=== PATIENT | female | born 1995 | race Caucasian/White ===

== ENCOUNTER 2017-06-05 09:12 | Emergency (ER) | payer OTHER ==
[2017-06-05] MEDS ORDERED: Morphine 4 MG/ML VIAL ONE (11:17)
[2017-06-05] MEDS ORDERED: Ondansetron HCl/PF 4 MG/2 ML Vial ONE (11:17)
[2017-06-05] MEDS ORDERED: ISOVUE-370 76%-LOCM 1 ML ONE (11:34)
[2017-06-05 11:40] LABS: #Lymphocytes 1.5 thou/uL (1.20-3.40); #Monocytes 0.7 thou/uL (0.11-0.59); #Neutrophils 10.4 thou/uL (1.40-6.50); %Basophils 0.3 % (0.0-1.0); %Eosinophils 0.4 % (0.0-10.0); %Lymphocytes 11.9 % (28.0-48.0); %Monocytes 5.3 % (0.0-4.0); Hematocrit 38.9 % (36.0-47.0); Mean Platelet Volume 9.5 fL (7.4-10.4); Red Blood Cell (RBC) Count 4.82 mill/uL (4.00-5.20); White Blood Cell (WBC) Count 12.7 thou/uL (4.8-10.8)
--- NOTE | 2017-06-05 12:07 | CT ---
ABDOMEN AND PELVIS CT WITH CONTRAST: Date: 06/05/17 INDICATION: Low back pain and abdominal pain. No prior comparison. FINDINGS: There is mild bilateral pleural fluid with adjacent ground-glass alveolar opacification, incompletely assessed. Moderate distention of the gallbladder. No acute focal pathology of the liver, spleen, ochoa creas, kidneys, or adrenal glands. Abdominal aorta is normal in caliber. No free air. Bowel is incomp letely evaluated without the presence of enteric contrast. There is mild urothelial thickening of the right urinary collection system which may be on the basis of an ascending urinary tract infection, a lthough this is not specific. Correlate with urinary laboratory values. There is prominent volume and heterogeneity of the uterus. Mild fat stranding of the pelvis notably at the anterior right aspect i s present. The appendix is not reliably assessed without the presence of enteric contrast. There is s uggestion of a small normal caliber partially air-filled appendix although this is difficult to discr etely delineate. There is no acute osseous pathology evident. IMPRESSION: 1. Urothelial thickening and mild prominence of the right ureter. This could be on the basis of an a scending urinary tract infection/reflux. Correlate with urinary laboratory values. IVP may prove usef ul to further assess. 2. Heterogeneity and prominence of the uterus with mild degree of adjacent fat stranding within the anterior right pelvis. Correlate clinically. 3. Incomplete assessment of the bowel without enteric contrast administration. 4. Incidental note of bilateral pleural fluid and ground-glass opacity at the lung bases, incomplete ly visualized on the basis of this exam. POS: [facility]
[2017-06-05 12:16] LABS: ALT (SGPT) 42 U/L (8-55); AST (SGOT) 29 U/L (5-34); Alkaline Phosphatase 89 U/L (40-150); Anion Gap 13 mmol/L (10-20); BUN (Urea Nitrogen) 12 mg/dL (7.0-18.7); Bilirubin, Total 0.7 mg/dL (0.2-1.2); Calc. Creatinine Clearance 0 mL/min (70-130); Calcium 9.8 mg/dL (7.8-10.44); Carbon Dioxide 24 mmol/L (22-29); Chloride 104 mmol/L (98-107); Estimated GFR-MDRD 86; Globulin 3.6 g/dL (2.4-3.5); Lipase 9 U/L (8-78); Protein, Total 7.9 g/dL (6.0-8.3)
[2017-06-05 12:50] LABS: Bilirubin Negative (Negative); Blood, Urine Large (Negative); Glucose, Urine (Dipstick) Negative (Negative); Ketone, Urine Negative (Negative); Nitrite Negative (Negative); Protein, Urine (Dipstick) 100 mg/dL (Neg-Trace); Urobilinogen 0.2 mg/dL (0.2-1.0)
[2017-06-05 12:51] LABS: Hyaline Casts/LPF 7-10 HYALINE CAST LPF (0-3 Hyaline)
[2017-06-05 13:03] LABS: Bacteria/HPF 4+ HPF (None Seen); Yeast-All Forms None Seen HPF (None Seen)
[2017-06-05] MEDS ORDERED: Ketorolac Tromethamine 30 MG/ML VIAL ONE (13:20)
[2017-06-05] MEDS ORDERED: cefTRIAXone\\ROCEPHIN 1 GM, Syringe 0.4 ML in Sterile Water 9.6 ML SLOW IVP SCH (13:30)
[2017-06-05] MEDS ORDERED: cefTRIAXone\\ROCEPHIN 2 GM in Sodium Chloride 0.9% 100 ML IVPB SCH (14:00)
== END 2017-06-05 14:50 | disposition home or self-care (01) ==
LOC: ERS 09:12
DX: N39.0 Urinary tract infection, site not specified (principal)
CPT/HCPCS: 36415; 74177; 80053; 81003; 81015; 83690; 85025; 87077; 87086; 87186; 96361; 96365; 96375; A4216; J0696; J1885; J2270; J2405; J7050

== ENCOUNTER 2018-06-17 09:27 | Outpatient (CLI) | payer OTHER ==
--- NOTE | 2018-06-17 12:21 | ULT ---
PELVIC ULTRASOUND WITH DOPPLER: (Transabdominal, transvaginal, Cooper scale, color flow, and spectral Doppler) Date: 06/17/18 HISTORY: Pelvic pain. FINDINGS: The uterus measures 9.2 x 5.4 x 5.0 cm, without mass. The endometrium measures 6.0 mm in thickness. T here is trace fluid in the endometrial cavity and cervix. The right ovary measures 5.6 x 3.5 x 3.5 cm. The left ovary measures 2.3 x 1.3 x 1.9 cm. There are cy sts in the right ovary, largest measuring 2.9 cm. Flow is demonstrated to both ovaries. There is a sm all amount of free fluid in the pelvis. IMPRESSION: 1. 2.9 cm right ovarian cyst. 2. Trace amount of free fluid in the endometrial and endocervical canal. POS: [facility]
== END 2018-06-17 09:28 | disposition home or self-care (01) ==
LOC: BICULT 09:27
PROVIDERS: ATTEND Nurse Practitioner Women's Health
DX: R10.2 Pelvic and perineal pain (principal); N83.201 Unspecified ovarian cyst, right side
CPT/HCPCS: 76856

== ENCOUNTER 2020-12-20 10:49 | Outpatient (CLI) | payer OTHER | END 2020-12-20 10:50 | disposition home or self-care (01) | LOC: BICULT 10:49 | PROVIDERS: ATTEND Family Medicine | DX: Z34.82 Encounter for supervision of other normal pregnancy, second trimester (principal); Z3A.19 19 weeks gestation of pregnancy | CPT/HCPCS: 76805 ==